=== PATIENT | female | born 1970 | race Caucasian/White ===

== ENCOUNTER 2018-01-08 08:05 | Outpatient (CLI) | payer BC, OTHER ==
--- NOTE | 2018-01-08 15:10 | CT ---
CT PARATHYROID WITH AND WITHOUT CONTRAST CT NECK WITH AND WITHOUT CONTRAST: Clinical history: Hypothyroidism, unspecified. FINDINGS: Thyroid gland is grossly unremarkable. No evidence of enhancing parathyroid mass. There are numerous enlarged bilateral cervical chain lymph nodes, the most dominant of which is located within right lev el IIA which measures 12 mm. No discrete oropharyngeal mass. Mild osseous degenerative change present. Prominence of the palatine tonsils is present. IMPRESSION: 1. No evidence of parathyroid adenoma. 2. Multiple mildly prominent bilateral cervical chain lymph nodes are nonspecific. Correlate clinical ly, and if necessary, imaging follow up may be obtained. POS: CYNTHIA
--- NOTE | 2018-01-08 16:03 | NM ---
NUCLEAR MEDICINE PARATHYROID SCAN WITH SPECT CT: CLINICAL HISTORY: Hypothyroidism, unspecified. FINDINGS: Homogeneous tracer uptake at the thyroid lobes is seen. There is no evidence of significant asymmetr ic uptake to confirm parathyroid adenoma. There is physiologic uptake in the salivary glands. IMPRESSION: No scintigraphic evidence to confirm parathyroid adenoma. POS: CYNTHIA
== END 2018-01-08 08:06 | disposition home or self-care (01) ==
LOC: NM 08:05
PROVIDERS: ATTEND Otolaryngology Plastic Surgery within the Head & Neck
DX: E03.9 Hypothyroidism, unspecified (principal); E21.0 Primary hyperparathyroidism
CPT/HCPCS: 70492; 78072; A9500